=== PATIENT | female | born 1930 | race Caucasian/White ===

== ENCOUNTER 2017-11-03 17:10 | Observation (INO) | payer MEDICAID ==
[~2017-11-03] VITALS: Ht 152.4 cm; Wt 42.0 kg
--- NOTE | 2017-11-03 17:27 | PD ---
HPI Chief Complaint: chest pain Time Seen by Provider: 17:23 Travel History International Travel<30 days: No Contact w/Intl Traveler<30days: No Traveled to known affect area: No History of Present Illness HPI 87-year-old female with history of hypertension presents emergency department today for evaluation of chest pain, intermittent, headache, and elevated blood pressure. Patient started having intermittent chest pain last evening. States the pain was "really bad." Denies any nausea vomiting.No lightheadedness. No focal deficits or weakness. Patient is primarily [place]ankan speaking and translation is done with nursing staff who speaks [place]. [facility] Past Medical History Hypertension: Yes Social History Alcohol Use: No Tobacco Use: No Substance Use: No Allergies-Medications (Allergen,Severity, Reaction): Coded Allergies: Penicillins (Verified Allergy, Unknown, hives, 11/03/17) Reported Meds & Prescriptions Reported Meds & Active Scripts Active Reported Losartan (Losartan Potassium) 100 Mg Tab 100 Mg PO DAILY Metoprolol Tartrate 50 Mg Tab 50 Mg PO DAILY Aspirin 81 Mg Chew 81 Mg PO DAILY Review of Systems Except as stated in HPI: all other systems reviewed are Neg Physical Exam Narrative GENERAL: Well-nourished elderly female patient, sitting in bed, in no acute distress. SKIN: Focused skin assessment warm/dry. HEAD: Atraumatic. Normocephalic. EYES: Pupils equal and round. No scleral icterus. No injection or drainage. ENT: No nasal bleeding or discharge. Mucous membranes pink and moist. NECK: Trachea midline. No JVD. CARDIOVASCULAR: Regular rate and rhythm. No murmur appreciated. RESPIRATORY: No accessory muscle use. Clear to auscultation. Breath sounds equal bilaterally. GASTROINTESTINAL: Abdomen soft, non-tender, nondistended. Hepatic and splenic margins not palpable. MUSCULOSKELETAL: No obvious deformities. No clubbing. No cyanosis. No edema. NEUROLOGICAL: Awake and alert. No obvious cranial nerve deficits. Motor grossly within normal limits. Normal speech. PSYCHIATRIC: Appropriate mood and affect; insight and judgment normal. Data Data Last Documented VS Vital Signs Date Time Temp Pulse Resp B/P (MAP) Pulse Ox O2 Delivery O2 Flow Rate FiO2 11/03/17 19:01 59 18 169/64 (99) 98 Room Air 11/03/17 18:27 98.8 Orders Orders Electrocardiogram (11/03/17 17:31) Basic Metabolic Panel (Bmp) (11/03/17 17:31) Ckmb (Isoenzyme) Profile (11/03/17 17:31) Complete Blood Count With Diff (11/03/17 17:) Magnesium (Mg) (11/03/17 17:31) Prothrombin Time / Inr (Pt) (11/03/17 17:31) Act Partial Throm Time (Ptt) (11/03/17 17:31) Troponin I (11/03/17 17:31) Chest, Single Ap (11/03/17:) Ecg Monitoring (11/03/17 17:31) Bilateral Bp Monitoring (11/03/17:31) Iv Access Insert/Monitor (11/03/17:) Oximetry (11/03/17:) Oxygen Administration (11/03/17:) Aspirin Chew (Aspirin Chew) (11/03/17 17:45) Sodium Chloride 0.9% Flush (Ns Flush) (11/03/17 17:45) Ct Brain W/O Iv Contrast(Rout) (11/03/17 ) Clonidine (Catapres) (11/03/17 17:45) Hydralazine Inj (Apresoline Inj) (11/03/17 18:00) Activity Bed Rest With Brp (11/03/17 19:45) Vital Signs (Adult) Q4H (11/03/17 19:45) Cardiac Rhythm .As Directed (11/03/17 19:45) Notify Dr: Other .PRN (11/03/17 19:45) Notify Parameters (11/03/17 19:45) Resp Oxygen Nasal Cannula (11/03/17 ) Diet Npo (11/04/17 Breakfast) Ckmb (Isoenzyme) Profile (11/03/17 20:40) Ckmb (Isoenzyme) Profile (11/03/17 23:40) Troponin I (11/03/17 20:40) Troponin I (11/03/17 23:40) Electrocardiogram (11/03/17 20:40) Electrocardiogram (11/03/17 23:40) ^ Obtain (11/03/17 19:45) Sodium Chloride 0.9% Flush (Ns Flush) (11/03/17 19:45) Sodium Chloride 0.9% Flush (Ns Flush) (11/03/17 21:00) Acetaminophen (Tylenol) (11/03/17 19:45) Morphine Inj (Morphine Inj) (11/03/17 19:45) Ondansetron Inj (Zofran Inj) (11/03/17 19:45) Nitroglycerin Sl (Nitrostat Sl) (11/03/17 19:45) Leveling Machine Operator / Telemetry JIM.Q8H (11/03/17 19:45) Brian Bilateral/Knee High JIM.QSHIFT (11/03/17 19:45) Admit Order (Ed Use Only) (11/03/17 19:45) Labs Laboratory Tests Test 11/03/17 17:40 11/03/17 18:50 White Blood Count 7.3 TH/MM3 Red Blood Count 4.45 MIL/MM3 Hemoglobin 14.1 GM/DL Hematocrit 40.9 % Mean Corpuscular Volume 91.9 FL Mean Corpuscular Hemoglobin 31.7 PG Mean Corpuscular Hemoglobin Concent 34.5 % Red Cell Distribution Width 12.3 % Platelet Count 266 TH/MM3 Mean Platelet Volume 9.6 FL Neutrophils (%) (Auto) 78.2 % Lymphocytes (%) (Auto) 16.3 % Monocytes (%) (Auto) 4.6 % Eosinophils (%) (Auto) 0.2 % Basophils (%) (Auto) 0.7 % Neutrophils # (Auto) 5.7 TH/MM3 Lymphocytes # (Auto) 1.2 TH/MM3 Monocytes # (Auto) 0.3 TH/MM3 Eosinophils # (Auto) 0.0 TH/MM3 Basophils # (Auto) 0.1 TH/MM3 CBC Comment AUTO DIFF Differential Comment AUTO DIFF CONFIRMED Platelet Estimate NORMAL Platelet Morphology Comment NORMAL Prothrombin Time 10.6 SEC Prothromb Time International Ratio 1.0 RATIO Activated Partial Thromboplast Time 22.5 SEC Blood Urea Nitrogen 9 MG/DL Creatinine 0.90 MG/DL Random Glucose 130 MG/DL Calcium Level 9.2 MG/DL Magnesium Level 1.8 MG/DL Sodium Level 128 MEQ/L Potassium Level 4.0 MEQ/L Chloride Level 92 MEQ/L Carbon Dioxide Level 28.1 MEQ/L Anion Gap 8 MEQ/L Estimat Glomerular Filtration Rate 59 ML/MIN Total Creatine Kinase 96 U/L Troponin I LESS THAN 0.02 NG/ML MDM Medical Decision Making Medical Screen Exam Complete: Yes Emergency Medical Condition: Yes Medical Record Reviewed: Yes Differential Diagnosis ACS versus hypertension versus vasospasm versus pleuritic pain versus migraine headache Narrative Course 87-year-old female presents emergency department for evaluation. Patient appears without distress. She is quite hypertensive here in emergency department. She is given hydralazine. Patient reports chest pain, moderate in severity. EKG is reviewed by my attending physician. Laboratory Tests Test 11/03/17 17:40 11/03/17 18:50 White Blood Count 7.3 TH/MM3 Red Blood Count 4.45 MIL/MM3 Hemoglobin 14.1 GM/DL Hematocrit 40.9 % Mean Corpuscular Volume 91.9 FL Mean Corpuscular Hemoglobin 31.7 PG Mean Corpuscular Hemoglobin Concent 34.5 % Red Cell Distribution Width 12.3 % Platelet Count 266 TH/MM3 Mean Platelet Volume 9.6 FL Neutrophils (%) (Auto) 78.2 % Lymphocytes (%) (Auto) 16.3 % Monocytes (%) (Auto) 4.6 % Eosinophils (%) (Auto) 0.2 % Basophils (%) (Auto) 0.7 % Neutrophils # (Auto) 5.7 TH/MM3 Lymphocytes # (Auto) 1.2 TH/MM3 Monocytes # (Auto) 0.3 TH/MM3 Eosinophils # (Auto) 0.0 TH/MM3 Basophils # (Auto) 0.1 TH/MM3 CBC Comment AUTO DIFF Differential Comment AUTO DIFF CONFIRMED Platelet Estimate NORMAL Platelet Morphology Comment NORMAL Prothrombin Time 10.6 SEC Prothromb Time International Ratio 1.0 RATIO Activated Partial Thromboplast Time 22.5 SEC Blood Urea Nitrogen 9 MG/DL Creatinine 0.90 MG/DL Random Glucose 130 MG/DL Calcium Level 9.2 MG/DL Magnesium Level 1.8 MG/DL Sodium Level 128 MEQ/L Potassium Level 4.0 MEQ/L Chloride Level 92 MEQ/L Carbon Dioxide Level 28.1 MEQ/L Anion Gap 8 MEQ/L Estimat Glomerular Filtration Rate 59 ML/MIN Total Creatine Kinase 96 U/L Troponin I LESS THAN 0.02 NG/ML Last Impressions Chest X-Ray 11/03/17 6241 Signed Impressions: Service Date/Time: October 17:45 - CONCLUSION: No evidence of acute cardiopulmonary disease. Reyes Mcgowan MD Head CT 11/03/17 0000 Signed Impressions: Service Date/Time: October 18:37 - CONCLUSION: No acute intracranial abnormality. Pansinusitis. Reyes Mcgowan MD Patient's blood pressure has decreased. She reports much improvement in her symptoms. Labs and radiology are reviewed by myself and discussed with my attending physician. Patient will be admitted to the chest pain center for further evaluation. Plan is discussed with the patient and her family. They are in agreement with this plan of care. Diagnosis Primary Impression: Chest pain Qualified Codes: R07.9 - Chest pain, unspecified Additional Impressions: Hypertension Qualified Codes: I10 - Essential (primary) hypertension Headache Qualified Codes: R51 - Headache Admitting Information Admitting Physician Requests: Observation Condition: Stable Denise Ratliff Nov 03, 2017 17:27
[2017-11-03 17:30] VITALS: BP 246/112; PULSE 69; RESP 18; TEMP 97.8; O2SAT 100
[2017-11-03] MEDS ORDERED: ASPI-516 PO (17:32)
[2017-11-03] MEDS ORDERED: METO50TA PO (17:32)
[2017-11-03] MEDS ORDERED: LOSA100T PO (17:32)
[2017-11-03 17:42] VITALS: O2SAT 99
[2017-11-03] MEDS ORDERED: ASPIRIN 81 MG CHEW TAB PO ONE (17:45)
[2017-11-03] MEDS ORDERED: cloNIDine HCL 0.1 MG TAB PO ONE (17:45)
[2017-11-03] MEDS ORDERED: SODIUM CHLORIDE 0.9% FLUSH 10 ML FLUSH IVF PRN (17:45)
[2017-11-03] MEDS ORDERED: hydrALAZINE HCL 20 MG/ML VIAL IV PUSH ONE (18:00)
--- NOTE | 2017-11-03 18:05 | RADRPT ---
EXAM DATE/TIME: 11/03/2017 17:45 [facility] COMPARISON: No previous studies available for comparison. INDICATIONS : Chest pain. MEDICAL HISTORY : Hypertension. SURGICAL HISTORY : None. ENCOUNTER: Initial ACUITY: 1 day PAIN SCORE: 10/10 LOCATION: Right chest FINDINGS: A single view of the chest demonstrates the lungs to be symmetrically aerated without evidence of mas s, infiltrate or effusion. The cardiomediastinal contours are unremarkable. Osseous structures are intact. CONCLUSION: No evidence of acute cardiopulmonary disease. Reyes Mcgowan MD on November 03, 2017 at 18:02 Board Certified Radiologist. This report was verified electronically.
[2017-11-03 18:27] VITALS: BP 222/90; PULSE 58; RESP 18; TEMP 98.8; O2SAT 97
[2017-11-03 18:32] LABS: PROTHROMBIN TIME - PATIENT 10.6 SEC (9.8-11.6)
[2017-11-03 18:39] LABS: AUTOMATED NEUTROPHIL # 5.7 TH/MM3 (1.8-7.7); BASOPHIL # 0.1 TH/MM3 (0-0.2); BASOPHIL % 0.7 % (0.0-2.0); EOSINOPHIL % 0.2 % (0.0-4.0); HEMATOCRIT 40.9 % (35.0-46.0); HEMOGLOBIN 14.1 GM/DL (11.6-15.3); LYMPH % 16.3 % (9.0-44.0); LYMPHOCYTE # 1.2 TH/MM3 (1.0-4.8); MEAN CELL VOLUME 91.9 FL (80.0-100.0); MEAN CORPUSCULAR HEMOGLOBIN 31.7 PG (27.0-34.0); MEAN CORPUSCULAR HGB CONC 34.5 % (32.0-36.0); MEAN PLATELET VOLUME 9.6 FL (7.0-11.0); MONO % 4.6 % (0.0-8.0); MONOCYTE # 0.3 TH/MM3 (0-0.9); NEUT % 78.2 % (16.0-70.0); PLATELET COUNT 266 TH/MM3 (150-450); RED BLOOD COUNT 4.45 MIL/MM3 (4.00-5.30); RED CELL DISTRIBUTION WIDTH 12.3 % (11.6-17.2); WHITE BLOOD COUNT 7.3 TH/MM3 (4.0-11.0)
--- NOTE | 2017-11-03 18:53 | RADRPT ---
EXAM DATE/TIME: 11/03/2017 18:37 [facility] COMPARISON: No previous studies available for comparison. INDICATIONS : Cephalgia. RADIATION DOSE: 34.71 CTDIvol (mGy) MEDICAL HISTORY : Hypertension. SURGICAL HISTORY : None. ENCOUNTER: Initial ACUITY: 1 day PAIN SCALE: 8/10 LOCATION: cranial TECHNIQUE: Multiple contiguous axial images were obtained of the head. Using automated exposure control and adj ustment of the mA and/or kV according to patient size, radiation dose was kept as low as reasonably a chievable to obtain optimal diagnostic quality images. DICOM format image data is available electro nically for review and comparison. FINDINGS: CEREBRUM: The ventricles are normal for age. No evidence of midline shift, mass lesion, hemorrhage or acute in farction. No extra-axial fluid collections are seen. POSTERIOR FOSSA: The cerebellum and brainstem are intact. The 4th ventricle is midline. The cerebellopontine angle i s unremarkable. EXTRACRANIAL: There is mucoperiosteal thickening diffusely of the visualized paranasal sinuses. Visualized mastoid air cells are clear. SKULL: The calvaria is intact. No evidence of skull fracture. CONCLUSION: No acute intracranial abnormality. Pansinusitis. Reyes Mcgowan MD on November 03, 2017 at 18:50 Board Certified Radiologist. This report was verified electronically.
[2017-11-03 19:01] VITALS: BP 169/64; PULSE 59; RESP 18; O2SAT 98
[2017-11-03 19:24] LABS: BICARBONATE 28.1 MEQ/L (21.0-32.0); BLOOD UREA NITROGEN 9 MG/DL (7-18); CALCIUM 9.2 MG/DL (8.5-10.1); CHLORIDE 92 MEQ/L (98-107); GLOMERULAR FILTRATION RATE 59 ML/MIN (>89); GLUCOSE,RANDOM 130 MG/DL (74-106); MAGNESIUM 1.8 MG/DL (1.5-2.5); SODIUM (NA) 128 MEQ/L (136-145)
[2017-11-03 19:29] LABS: TROPONIN I LESS THAN 0.02 NG/ML (0.02-0.05)
[2017-11-03] MEDS ORDERED: ACETAMINOPHEN 500 MG CPLT PO PRN (19:45)
[2017-11-03] MEDS ORDERED: ONDANSETRON HCL 4 MG/2 ML VIAL IV PUSH PRN (19:45)
[2017-11-03] MEDS ORDERED: MORPHINE SULFATE 4 MG/ML INJ IV PUSH PRN (19:45)
[2017-11-03] MEDS ORDERED: SODIUM CHLORIDE 0.9% FLUSH 10 ML FLUSH IV FLUSH PRN (19:45)
[2017-11-03] MEDS ORDERED: NITROGLYCERIN 0.4 MG SL 25 TABS/BTL SL PRN (19:45)
[2017-11-03] MEDS: SODIUM CHLORIDE 0.9% FLUSH 10 ML FLUSH IV FLUSH SCH (21:36)
[2017-11-03 23:00] LABS: TROPONIN I LESS THAN 0.02 NG/ML (0.02-0.05)
[2017-11-03 23:26] VITALS: BP 130/60; PULSE 74; RESP 18; TEMP 97.8; O2SAT 97
[2017-11-04] VITALS (7 sets, daily range): BP systolic 144–194; BP diastolic 65–88; PULSE 53–60; RESP 18; TEMP 98.2; O2SAT 97–99
[2017-11-04 01:37] LABS: TROPONIN I LESS THAN 0.02 NG/ML (0.02-0.05)
--- NOTE | 2017-11-04 08:50 | HHI.HP ---
HPI Primary Care Physician Unknown Chief Complaint Chest pain History of Present Illness 87 year old Tamaz[place] speaking women presents to ER for further evaluation of chest pain. Interview completed with [facility] [employer] system. Onset yesterday. Location right anterior chest with radiation substernally. Characterized as crushing, heavy pain. No so states his symptoms of nausea, vomiting, dyspnea, or diaphoresis. No known precipitating or relieving factors. Denies similar pain in the past. Noted her blood pressure to be elevated also. Review of Systems General: No fatigue,weakness, fever, chills, or recent illness change in appetite. Had been in her general state health HEENT: KAY has resolved. Reported headache in ER yesterday. CV: As stated above. No current chest pain or pressure. RESP: No SOB, cough, wheeze, or recent upper a store infection. GI: No nausea, vomiting, or bowel changes : No dysuria, urgency, frequency EXT: No lower leg edema, no paraesthesias MS: No discomfort or change in ROM NEURO: No difficulty with balance, LOC, motor/sensory deficits PSYCH: No anxiety, depression SKIN: No rashes, no concerning lesions Past Family Social History Allergies: Coded Allergies: Penicillins (Verified Allergy, Unknown, hives, 11/03/17) Past Medical History Hypertension Reported Medications Reported Meds & Active Scripts Active Reported Losartan (Losartan Potassium) 100 Mg Tab 100 Mg PO DAILY Metoprolol Tartrate 50 Mg Tab 50 Mg PO DAILY Aspirin 81 Mg Chew 81 Mg PO DAILY Active Ordered Medications Current Medications Medications (Trade) Dose Ordered Sig/Joshua Route Start Time Stop Time Status Last Admin (NS Flush) 2 ml UNSCH PRN IV FLUSH 11/03/17 19:45 (NS Flush) 2 ml BID IV FLUSH 11/03/17 21:00 11/03/17 21:36 (Tylenol) 500 mg Q4H PRN PO 11/03/17 19:45 (Morphine Inj) 2 mg Q4H PRN IV PUSH 11/03/17 19:45 (Zofran Inj) 4 mg Q6H PRN IV PUSH 11/03/17 19:45 (Nitrostat Sl) 0.4 mg Q5M PRN SL 11/03/17 19:45 (Aspirin) 325 mg DAILY PO 11/04/17 09:00 Social History Known hypertension. No known hyperlipidemia, coronary artery disease, or diabetes. Lifelong nonsmoker. Past cardiac testing None Physical Exam Vital Signs Vital Signs Date Time Temp Pulse Resp B/P (MAP) Pulse Ox O2 Delivery O2 Flow Rate FiO2 11/04/17 08:20 98.2 60 18 144/65 (91) 97 11/04/17 00:37 21 11/03/17 23:26 97.8 74 18 130/60 (83) 97 11/03/17 22:24 11/03/17 19:01 59 18 169/64 (99) 98 Room Air 11/03/17 18:27 98.8 58 18 222/90 (134) 97 Room Air 11/03/17 17:42 99 Room Air 11/03/17 17:42 99 Room Air 11/03/17 17:30 69 16 98 Room Air 11/03/17 17:30 97.8 69 18 246/112 (156) 100 Physical Exam GENERAL: Alert WN, WD, NAD, pleasant, elderly female HEAD: NC, AT CV: RRR, without murmur, rub, gallop, no JVD, S1-S2 no S3-S4. Chest wall nontender with palpation. RESP: Clear lungs throughout bilateral, no crackles, wheeze, rhonchi, symmetrical chest rise, nonlabored, able to speak in full sentences ABD: Soft, NT, ND, no masses, positive bowel tones EXT: Pulses +24, no dependent edema MS: Normal tone 4 extremities, nontender, no obvious deformities, full range of motion NEURO: CN II through CN XII grossly intact, motor strength 5/5 PSYCH: A+O 3, pleasant affect, Tamazight-speaking, appropriate mood, insight and judgment SKIN: Normal turgor, normal texture, no lesions, no rashes, brisk cap refill, even hair distribution Laboratory Laboratory Tests Test 11/03/17 17:40 11/03/17 18:50 11/03/17 21:30 11/04/17 00:39 White Blood Count 7.3 Red Blood Count 4.45 Hemoglobin 14.1 Hematocrit 40.9 Mean Corpuscular Volume 91.9 Mean Corpuscular Hemoglobin 31.7 Mean Corpuscular Hemoglobin Concent 34.5 Red Cell Distribution Width 12.3 Platelet Count 266 Mean Platelet Volume 9.6 Neutrophils (%) (Auto) 78.2 Lymphocytes (%) (Auto) 16.3 Monocytes (%) (Auto) 4.6 Eosinophils (%) (Auto) 0.2 Basophils (%) (Auto) 0.7 Neutrophils # (Auto) 5.7 Lymphocytes # (Auto) 1.2 Monocytes # (Auto) 0.3 Eosinophils # (Auto) 0.0 Basophils # (Auto) 0.1 CBC Comment AUTO DIFF Differential Comment AUTO DIFF CONFIRMED Platelet Estimate NORMAL Platelet Morphology Comment NORMAL Prothrombin Time 10.6 Prothromb Time International Ratio 1.0 Activated Partial Thromboplast Time 22.5 Blood Urea Nitrogen 9 Creatinine 0.90 Random Glucose 130 Calcium Level 9.2 Magnesium Level 1.8 Sodium Level 128 Potassium Level 4.0 Chloride Level 92 Carbon Dioxide Level 28.1 Anion Gap 8 Estimat Glomerular Filtration Rate 59 Total Creatine Kinase 96 85 130 Troponin I LESS THAN 0.02 LESS THAN 0.02 LESS THAN 0.02 Creatine Kinase MB 1.6 Result Diagram: 11/03/17 1740 11/03/17 1850 Imaging Last 48 hours Impressions Myocardial Perfusion Scan Nuc Med 11/04/17 0000 Signed Impressions: Service Date/Time: Saturday, November 04, 2017 13:03 - CONCLUSION: 1. 10%% redistribution in segments of the mid and lower anterior wall. This would not be considered statistically significant. 2. Otherwise, no scintigraphic findings of infarct or ischemia. 3. Adequate wall motion throughout the estimated ejection fraction of 70%% RISK CATEGORY: Low (<1%% Annual Mortality Rate) Fausto Lo MD Chest X-Ray 11/03/17 1731 Signed Impressions: Service Date/Time: October 17:45 - CONCLUSION: No evidence of acute cardiopulmonary disease. Reyes Mcgowan MD Head CT 11/03/17 0000 Signed Impressions: Service Date/Time: October 18:37 - CONCLUSION: No acute intracranial abnormality. Pansinusitis. Reyes Mcgowan MD Course EKG First-degree AV block, no ST or T-segment changes Caprini VTE Risk Assessment Caprini VTE Risk Assessment: Mod/High Risk (score >= 2) Caprini Risk Assessment Model Point Value = 1 Point Value = 2 Point Value = 3 Point Value = 5 Age 41-60 Minor surgery BMI > 25 kg/m2 Swollen legs Varicose veins or History of unexplained or recurrent spontaneous Oral contraceptives or hormone replacement Sepsis (< 1 month) Serious lung disease, including pneumonia (< 1 month) Abnormal pulmonary function Acute myocardial infarction Congestive heart failure (< 1 month) History of inflammatory bowel disease Medical patient at bed rest Age 61-74 Arthroscopic surgery Major open surgery (> 45 min) Laparoscopic surgery (> 45 min) Malignancy Confined to bed (> 72 hours) Immobilizing plaster cast Central venous access Age >= 75 History of VTE Family history of VTE Factor V Leiden Prothrombin [id number] Lupus anticoagulant Anticardiolipin antibodies Elevated serum homocysteine Heparin-induced thrombocytopenia Other congenital or acquired thrombophilia Stroke (< 1 month) Elective arthroplasty Hip, pelvis, or leg fracture Acute spinal cord injury (< 1 month) Prophylaxis Regimen Total Risk Factor Score Risk Level Prophylaxis Regimen 0-1 Low Early ambulation 2 Moderate Order ONE of the following: *Sequential Compression Device (SCD) *Heparin 5000 units SQ BID 3-4 Higher Order ONE of the following medications: *Heparin 5000 units SQ TID *Enoxaparin/Lovenox 40 mg SQ daily (WT < 150 kg, CrCl > 30 mL/min) *Enoxaparin/Lovenox 30 mg SQ daily (WT < 150 kg, CrCl > 10-29 mL/min) *Enoxaparin/Lovenox 30 mg SQ BID (WT < 150 kg, CrCl > 30 mL/min) AND/OR *Sequential Compression Device (SCD) 5 or more Highest Order ONE of the following medications: *Heparin 5000 units SQ TID (Preferred with Epidurals) *Enoxaparin/Lovenox 40 mg SQ daily (WT < 150 kg, CrCl > 30 mL/min) *Enoxaparin/Lovenox 30 mg SQ daily (WT < 150 kg, CrCl > 10-29 mL/min) *Enoxaparin/Lovenox 30 mg SQ BID (WT < 150 kg, CrCl > 30 mL/min) AND *Sequential Compression Device (SCD) Assessment and Plan Assessment and Plan #1 Atypical chest pain -admitted to chest pain center. Ruled out with 3 sets of EKGs, cardiac events, and monitored on telemetry overnight. Seen and evaluated by Dr. Edu Carlson. Proceed with Lexiscan this morning. If unremarkable, plans to discharge home with follow-up with primary care provider. Patient and daughter at bedside are agreeable to plan of care. #2 Hypertension-continue metoprolol and losartan, clonidine 0.1 mg every 6 hours when necessary as needed for systolic blood pressure greater than 180 or diastolic 95. Goldie Sevilla Nov 04, 2017 08:50
[2017-11-04] MEDS ORDERED: ASPIRIN 325 MG TAB PO SCH (09:00)
[2017-11-04] MEDS: SODIUM CHLORIDE 0.9% FLUSH 10 ML FLUSH IV FLUSH SCH (09:38)
[2017-11-04] MEDS ORDERED: REGADENOSON INJ 0.4 MG/5 ML SYR ONE (13:23)
--- NOTE | 2017-11-04 14:30 | RADRPT ---
EXAM DATE/TIME: 11/04/2017 13:03 [facility] COMPARISON: No previous studies available for comparison. INDICATIONS : Substernal chest pain. Angina. DOSE: 25.6 mCi Tc99m Myoview at stress. 8.1 mCi Tc99m Myoview at rest. 0.4 mg Lexiscan STRESS SYMPTOMS: Dyspnea. EJECTION FRACTION: 70% MEDICAL HISTORY : Hypertension. SURGICAL HISTORY : Appendectomy. Left knee. ENCOUNTER: Initial ACUITY: 1 day PAIN SCALE: 4/10 LOCATION: Substernal chest TECHNIQUE: The patient underwent pharmacologic stress with infusion of prescribed dose. Continuous ECG tracing was monitored during stress. Gated SPECT imaging was performed after stress and conventional SPECT i maging was performed at rest. The examination was performed on a SPECT/CT scanner, both attenuation and non-corrected datasets were reviewed. FINDINGS: DISTRIBUTION: The maximum perfused segment at stress is in the anteroseptal wall. PERFUSION STUDY: The pattern of perfusion at stress shows about 10% redistribution in portions of the mid and lower an terior wall which would not be considered statistically significant.. GATED STUDY: There is intact wall motion and thickening without hypokinetic or dyskinetic segments. CONCLUSION: 1. 10% redistribution in segments of the mid and lower anterior wall. This would not be considered st atistically significant. 2. Otherwise, no scintigraphic findings of infarct or ischemia. 3. Adequate wall motion throughout the estimated ejection fraction of 70% RISK CATEGORY: Low (<1% Annual Mortality Rate) Fausto Lo MD on November 04, 2017 at 14:24 Board Certified Radiologist. This report was verified electronically.
--- NOTE | 2017-11-04 16:16 | EKG ---
Date Performed: 11/04/2017 Time Performed: 02:22:10 PTAGE: 87 years EKG: Sinus rhythm WITH FIRST DEGREE AV BLOCK ABNORMAL ECG PREVIOUS TRACING : 11/03/2017 17.40 Since previous tracing, no significant change noted DOCTOR: Edu Carlson Interpretating Date/Time 11/04/2017 16:14:19
--- NOTE | 2017-11-04 16:18 | EKG ---
Date Performed: 11/03/2017 Time Performed: 21:26:45 PTAGE: 87 years EKG: SINUS BRADYCARDIA WITH FIRST DEGREE AV BLOCK POSSIBLE LEFT ATRIAL ENLARGEMENT POSSIBLE LEFT VENTRICULAR HYPERTROPHY NONSPECIFIC T-WAVE ABNORMALITY ABNORMAL ECG PREVIOUS TRACING : 11/03/2017 17.40 Since previous tracing, no significant change noted DOCTOR: Edu Carlson Interpretating Date/Time 11/04/2017 16:16:51
--- NOTE | 2017-11-04 16:20 | EKG ---
Date Performed: 11/03/2017 Time Performed: 17:40:10 PTAGE: 87 years EKG: NORMAL Sinus rhythm MINIMAL VOLTAGE CRITERIA FOR LVH, CONSIDER NORMAL VARIANT INFERIOR MYOCARDIAL INFARCTION ABNORMAL EC G NO PREVIOUS TRACING DOCTOR: Edu Carlson Interpretating Date/Time 11/04/2017 16:18:22
--- NOTE | 2017-11-04 16:27 | HHI.DCPOC ---
Discharge Care Plan Diagnosis: (1) Atypical chest pain (2) Hypertension Goals to Promote Your Health * To prevent worsening of your condition and complications * To maintain your health at the optimal level Directions to Meet Your Goals Take your medications as prescribed Follow your dietary instruction Follow activity as directed Keep your appointments as scheduled Take your immunizations and boosters as scheduled If your symptoms worsen call your PCP, if no PCP go to Urgent Care Center or Emergency Room Smoking is Dangerous to Your Health. Avoid second hand smoke Call the 24-hour hour crisis hotline for domestic abuse at Goldie Sevilla Nov 04, 2017 16:27
[2017-11-04] MEDS ORDERED: LOSARTAN 50 MG TAB PO SCH (16:30)
[2017-11-04] MEDS ORDERED: METOPROLOL TARTRATE 50 MG TAB PO SCH (16:30)
[2017-11-04] MEDS ORDERED: amLODIPine BESYLATE 5 MG TAB PO ONE (16:30)
--- NOTE | 2017-11-04 16:33 | TR ---
Date Performed: 11/04/2017 Time Performed: 13:20:27 DOCTOR: Edu Carlson DRUG LIST: CLINICAL HISTORY: ANGINA REASON FOR TEST: Angina REASON FOR ENDING: OBSERVATION: CONCLUSION: Lexiscan stress test was performed under standard four minute protocol. Radionucl[place] e was injected one minute prior to ending the test. No electrocardiographic abormalities were present to suggest ischemia. Nuclear imaging and interpretation are pending. COMMENTS:
[2017-11-04] MEDS ORDERED: cloNIDine HCL 0.1 MG TAB PO PRN (17:00)
== END 2017-11-04 19:58 | disposition home or self-care (01) ==
LOC: NEPE 17:10 → NEDA 19:47 → NEPHCDU 23:24
PROVIDERS: ADMIT Internal Medicine Cardiovascular Disease; ATTEND Internal Medicine Cardiovascular Disease
DX: R07.89 Other chest pain (principal); I10 Essential (primary) hypertension; R51 Headache; I44.0 Atrioventricular block, first degree; J32.4 Chronic pansinusitis; I20.9 Angina pectoris, unspecified; R06.00 Dyspnea, unspecified; R94.31 Abnormal electrocardiogram [ECG] [EKG]; R00.1 Bradycardia, unspecified; Z79.899 Other long term (current) drug therapy; Z79.82 Long term (current) use of aspirin
CPT/HCPCS: 70450; 71045; 78452; 80048; 82550; 82552; 83735; 84484; 85025; 85610; 85730; 93005; 93017; 96374; 99285; A9502; G0378; J0360; J2785